=== PATIENT | male | born 1960 | race Caucasian/White ===

== ENCOUNTER 2020-08-17 13:00 | Emergency (ER) | payer BC, MEDICAID ==
[~2020-08-17] VITALS: Ht 172.7 cm; Wt 75.0 kg
[2020-08-17 13:04] VITALS: BP 131/92
[2020-08-17] MEDS ORDERED: LIDOcaine 1% W/epiNEPHrine 1:200,000 10ml vial IJ ONE (13:20)
== END 2020-08-17 15:00 ==
LOC: ER 13:00
DX: S01.312A Laceration without foreign body of left ear, initial encounter (principal); M25.512 Pain in left shoulder; G89.29 Other chronic pain; W22.8XXA Striking against or struck by other objects, initial encounter; Y93.89 Activity, other specified; Y92.89 Other specified places as the place of occurrence of the external cause; Y99.8 Other external cause status
CPT/HCPCS: 12013; 71045; 99283; 99284

== ENCOUNTER 2021-11-15 21:52 | Emergency (ER) | payer BC, MEDICAID ==
[~2021-11-15] VITALS: Ht 170.2 cm; Wt 75.0 kg
[~2021-11-15 21:52] MED LIST: ARIP10TA57 PO; BACL20TA PO; BENZ1TAB7 PO; BUPR150T27 PO; FINA5TAB11 PO; LORA10TA7 PO; OMEP40CA21 PO; QUET50TA24 PO
[2021-11-15 22:10] VITALS: BP 121/71
== END 2021-11-16 00:29 | disposition left against medical advice (07) ==
LOC: ER 21:52
DX: T65.91XA Toxic effect of unspecified substance, accidental (unintentional), initial encounter (principal); Z53.21 Procedure and treatment not carried out due to patient leaving prior to being seen by health care provider

== ENCOUNTER 2022-01-29 11:52 | Emergency (ER) | payer BC, MEDICAID | END 2022-01-29 13:02 | disposition left against medical advice (07) | LOC: ER 11:52 | DX: Z00.8 Encounter for other general examination (principal); Z53.21 Procedure and treatment not carried out due to patient leaving prior to being seen by health care provider ==

== ENCOUNTER 2022-02-20 18:55 | Emergency (ER) | payer BC, MEDICAID ==
[~2022-02-20] VITALS: Ht 172.7 cm; Wt 69.9 kg
[2022-02-20 20:58] LABS: BASOPHILS # (AUTO) 0.1 X10'3 (0-0.2); BASOPHILS % (AUTO) 1.1 % (0-1); HEMATOCRIT 37.7 % (42.0-52.0); HEMOGLOBIN 12.9 g/dl (14.0-17.9); LYMPHOCYTES # (AUTO) 1.8 X10'3 (1.1-4.8); LYMPHOCYTES % (AUTO) 36.4 % (21-51); MEAN CORPUSCULAR HEMOGLOBIN 32.6 PG (27.0-31.0); MEAN CORPUSCULAR HGB CONC 34.1 g/dL (33.0-36.5); MEAN CORPUSCULAR VOLUME 95.5 FL (78-98); MEAN PLATELET VOLUME 7.1 FL (7.4-10.4); MONOCYTES # (AUTO) 0.4 X10'3 (0-0.9); MONOCYTES % (AUTO) 7.4 % (2-12); NEUTROPHILS # (AUTO) 2.7 X10'3 (1.8-7.7); NEUTROPHILS % (AUTO) 54.1 % (42-75); PLATELET COUNT 254 X10'3 (140-440); RED BLOOD COUNT 3.94 X10'6 (4.70-6.10); RED CELL DISTRIBUTION WIDTH 13.9 % (11.5-14.5)
--- NOTE | 2022-02-20 20:59 | NUR ---
PT LYING IN BED RESTING WITH EYES CLOSED
[2022-02-20 21:08] LABS: URINE AMPHETAMINE SCREEN POSITIVE (Neg); URINE BARBITUATE SCREEN NEGATIVE (Neg); URINE BENZODIAZEPINES SCREEN NEGATIVE (Neg); URINE CANNABINOID SCREEN POSITIVE (Neg); URINE COCAINE SCREEN NEGATIVE (Neg); URINE METHADONE SCREEN NEGATIVE (Neg); URINE OPIATE SCREEN NEGATIVE (Neg); URINE PHENCYCLIDINE SCREEN NEGATIVE (Neg)
[2022-02-20 21:11] LABS: ALANINE AMINOTRANSFERASE 22 U/L (12-78); ALBUMIN 3.9 G/DL (3.4-5.0); ALBUMIN/GLOBULIN RATIO 1.1 (1.1-1.5); ALKALINE PHOSPHATASE 98 IU/L (46-116); ANION GAP 6 (8-16); ASPARTATE AMINO TRANSFERASE 50 U/L (10-37); BILIRUBIN,TOTAL 0.6 MG/DL (0.1-1.0); BLOOD UREA NITROGEN 20 MG/DL (7-18); BUN/CREATININE RATIO 25.6 (5.4-32.0); CALCIUM 8.7 MG/DL (8.5-10.1); CHLORIDE 101 MMOL/L (99-107); CREATININE 0.78 MG/DL (0.60-1.10); ETHANOL < 0.010 GM/DL (0.0-0.010); GLUCOSE 81 MG/DL (70-104); POTASSIUM 3.8 MMOL/L (3.5-5.1); SODIUM 134 MMOL/L (135-145); TOTAL CARBON DIOXIDE 26.8 MMOL/L (24-32); TOTAL PROTEIN 7.3 G/DL (6.4-8.2); eGFR > 90 ML/MIN
--- NOTE | 2022-02-20 22:53 | NUR ---
PT RESTING IN BED WITH EYES CLOSED ON LEFT SIDE
--- NOTE | 2022-02-21 07:15 | NUR ---
Pt made a verbal contract that he will not harm himself or others while in our care.
[2022-02-21 07:16] VITALS: BP 105/60
[2022-02-21] MEDS ORDERED: METO-384 PO (07:26)
[2022-02-21] MEDS ORDERED: BUPR2TAB11 SL (07:26)
[2022-02-21] MEDS ORDERED: DULO60CA65 PO (07:26)
[2022-02-21] MEDS ORDERED: ALBUTEROL (07:26)
--- NOTE | 2022-02-21 10:37 | NUR ---
PT LYING IN BED, WITH EYES CLOSED. NO NEEDS AT THIS TIME. WILL CONTINUE TO MONITER.
--- NOTE | 2022-02-21 11:04 | NUR ---
MED REC FAXED TO PHARMACY
[2022-02-21] MEDS ORDERED: ALBU17AE26 PO (11:07)
--- NOTE | 2022-02-21 11:45 | NUR ---
PT IN ROOM RESTING, PT HAS NO NEEDS AT TIME. WILL CONTINUE TO MONITER.
[2022-02-21] MEDS ORDERED: albuterol 2.5 MG/3 ML nebule NEB PRN (12:15)
[2022-02-21] MEDS ORDERED: BUPRENORPHINE HCL 2 MG SL SCH (20:00)
[2022-02-21] MEDS ORDERED: QUEtiapine 25mg tablet PO SCH (21:00)
[2022-02-22] MEDS ORDERED: buproprion 150mg XL (24-hour) tablet PO SCH (08:00)
[2022-02-22] MEDS ORDERED: pantoprazole 40mg Tablet.DR PO SCH (08:00)
[2022-02-22] MEDS ORDERED: loratadine 10mg tablet PO SCH (08:00)
[2022-02-22] MEDS ORDERED: finasteride 5mg tablet PO SCH (08:00)
== END 2022-02-21 12:43 | disposition home or self-care (01) ==
LOC: ER 18:56
DX: R45.850 Homicidal ideations (principal); Z20.822 Contact with and (suspected) exposure to COVID-19; G89.29 Other chronic pain; M54.50 Low back pain, unspecified; F12.90 Cannabis use, unspecified, uncomplicated; Z88.2 Allergy status to sulfonamides; Z59.00 Homelessness unspecified
CPT/HCPCS: 36415; 80053; 80305; 80320; 85025; 87811; 99285

== ENCOUNTER 2022-02-28 13:18 | Emergency (ER) | payer BC, MEDICAID ==
[~2022-02-28] VITALS: Ht 172.7 cm; Wt 68.2 kg
[~2022-02-28 13:18] MED LIST changes: +ALBU17AE26 PO; -ARIP10TA57 PO; -BACL20TA PO; -BENZ1TAB7 PO; +BUPR2TAB11 SL
[2022-02-28 13:23] VITALS: BP 134/85
[2022-02-28] MEDS ORDERED: GABA300C PO (13:32)
== END 2022-02-28 13:50 | disposition home or self-care (01) ==
LOC: ER 13:19
DX: F10.129 Alcohol abuse with intoxication, unspecified (principal); G89.29 Other chronic pain; M54.50 Low back pain, unspecified; F12.90 Cannabis use, unspecified, uncomplicated; Z02.79 Encounter for issue of other medical certificate; Z88.2 Allergy status to sulfonamides; Z59.00 Homelessness unspecified; Y90.9 Presence of alcohol in blood, level not specified
CPT/HCPCS: 99283

== ENCOUNTER 2022-09-11 20:03 | Emergency (ER) | payer BC, MEDICAID ==
[~2022-09-11] VITALS: Ht 172.7 cm; Wt 70.5 kg
[~2022-09-11 20:03] MED LIST changes: +GABA300C PO
--- NOTE | 2022-09-11 21:00 | NUR ---
PT SITTING IN LOBBY, COPPERATIVE WITH STAFF, AWAITING ROOM PLACEMENT.
--- NOTE | 2022-09-11 22:00 | NUR ---
AWAITING ROOM PLACEMENT, PT AWAKR, SITTING IN CHAIR WATCHING TV.
[2022-09-11 22:56] LABS: BASOPHILS % (AUTO) 0.7 % (0-1); EOSINOPHILS # (AUTO) 0.3 X10'3 (0-0.9); EOSINOPHILS % (AUTO) 4.1 % (0-6); HEMATOCRIT 36.4 % (42.0-52.0); HEMOGLOBIN 12.4 g/dl (14.0-17.9); LYMPHOCYTES # (AUTO) 3.1 X10'3 (1.1-4.8); LYMPHOCYTES % (AUTO) 43.5 % (21-51); MEAN CORPUSCULAR HEMOGLOBIN 32.8 PG (27.0-31.0); MEAN CORPUSCULAR VOLUME 96.4 FL (78-98); MEAN PLATELET VOLUME 6.3 FL (7.4-10.4); MONOCYTES # (AUTO) 0.6 X10'3 (0-0.9); MONOCYTES % (AUTO) 8.9 % (2-12); NEUTROPHILS # (AUTO) 3.1 X10'3 (1.8-7.7); NEUTROPHILS % (AUTO) 42.8 % (42-75); PLATELET COUNT 347 X10'3 (140-440); RED BLOOD COUNT 3.78 X10'6 (4.70-6.10); RED CELL DISTRIBUTION WIDTH 14.6 % (11.5-14.5); WHITE BLOOD COUNT 7.2 X10'3 (4.5-11.0)
--- NOTE | 2022-09-11 23:00 | NUR ---
AWAITING ROOM PLACEMENT, PT AWAKE WATCHING TV IN LOBBY.
[2022-09-11 23:10] LABS: ALANINE AMINOTRANSFERASE 11 U/L (12-78); ALBUMIN 3.7 G/DL (3.4-5.0); ALBUMIN/GLOBULIN RATIO 1.2 (1.1-1.5); ALKALINE PHOSPHATASE 85 IU/L (46-116); ANION GAP 3 (8-16); ASPARTATE AMINO TRANSFERASE 14 U/L (10-37); BILIRUBIN,TOTAL 0.3 MG/DL (0.1-1.0); BLOOD UREA NITROGEN 13 MG/DL (7-18); CALCIUM 8.7 MG/DL (8.5-10.1); CHLORIDE 103 MMOL/L (99-107); ETHANOL < 0.010 GM/DL (0.0-0.010); GLUCOSE 99 MG/DL (70-104); POTASSIUM 3.9 MMOL/L (3.5-5.1); SODIUM 139 MMOL/L (135-145); TOTAL CARBON DIOXIDE 33.1 MMOL/L (24-32); TOTAL PROTEIN 6.9 G/DL (6.4-8.2); eGFR 76 ML/MIN
[2022-09-11 23:22] LABS: ACETAMINOPHEN < 2.0 UG/ML (10-30)
--- NOTE | 2022-09-12 00:10 | NUR ---
AWAITING ROOM PLACEMENT, PT SLEEPING ON GROUND IN LOBBY. EQUAL CHEST RISE AND FALL, NO S/S OF DISTRESS.
--- NOTE | 2022-09-12 01:15 | NUR ---
AWAITING ROOM PLACEMENT, PT SLEEPING ON GROUND IN LOBBY. EQUAL CHEST RISE AND FALL, NO S/S OF DISTRESS.
--- NOTE | 2022-09-12 02:15 | NUR ---
AWAITING ROOM PLACEMENT, PT SLEEPING ON RIGHT SIDE ON GROUND IN LOBBY. EQUAL CHEST RISE AND FALL, NO S/S OF DISTRESS.
--- NOTE | 2022-09-12 03:30 | NUR ---
AWAITING ROOM PLACEMENT, PT SLEEPING ON GROUND IN LOBBY. EQUAL CHEST RISE AND FALL, NO S/S OF DISTRESS.
--- NOTE | 2022-09-12 04:30 | NUR ---
AWAITING ROOM PLACEMENT, PT SLEEPING ON LEFT SIDE ON GROUND IN LOBBY. EQUAL CHEST RISE AND FALL, NO S/S OF DISTRESS.
--- NOTE | 2022-09-12 05:30 | NUR ---
AWAITING ROOM PLACEMENT, PT SLEEPING ON GROUND IN LOBBY. EASILY AROUSABLE TO VOICE. PT UPDATED WITH PLAN OF CARE, OBTAINED URINE AND COVID SWAB. PT STILL VOICING SI WITH PLAN TO JUMP OFF BRIDGE. PT COOPERATIVE WITH STAFF. PT AMBULATES WELL WITH NO ASSISTANCE, VITALS UPDATED, VSS.
[2022-09-12 05:39] VITALS: BP 129/85
[2022-09-12 06:05] LABS: URINE AMPHETAMINE SCREEN NEGATIVE (Neg); URINE BARBITUATE SCREEN NEGATIVE (Neg); URINE BENZODIAZEPINES SCREEN NEGATIVE (Neg); URINE CANNABINOID SCREEN POSITIVE (Neg); URINE COCAINE SCREEN NEGATIVE (Neg); URINE METHADONE SCREEN NEGATIVE (Neg); URINE OPIATE SCREEN NEGATIVE (Neg); URINE PHENCYCLIDINE SCREEN NEGATIVE (Neg)
--- NOTE | 2022-09-12 06:19 | NUR ---
PT SLEEPING IN HIS RGT SIDE LATERAL POSITION {LOBBY FLOOR}.RR WNL ,WILL CONT TO MONITOR.
--- NOTE | 2022-09-12 07:12 | NUR ---
SECURITY INCIDENT RESPONSE SPECIALIST CAME FOR ROUNDS WOKE UP THE PT FROM SLEEP ,PT UP IN CHAIR AWAITING FOR ROOM ASSISGNEMENT.MADE CHARGE DONN AWARE THAT PT IS IN THE LOBBY SINCE LAST NIGHT. PER CHARGE ONCE WILL GET THE COVID RESULT WILL ROOM THE PT .
--- NOTE | 2022-09-12 07:45 | NUR ---
Patient ambulatory, steady gait to ED OF bed 22. Patient is calm and cooperative. Continue to monitor.
[2022-09-12] MEDS ORDERED: GABA100C PO (08:19)
[2022-09-12] MEDS ORDERED: BACL20TA PO (08:19)
[2022-09-12] MEDS ORDERED: OLAN5TAB75 PO (08:19)
[2022-09-12] MEDS ORDERED: LORA10TA7 PO (08:19)
[2022-09-12] MEDS ORDERED: PRAZ1CAP5 PO (08:19)
[2022-09-12] MEDS ORDERED: FINA5TAB11 PO (08:19)
[2022-09-12] MEDS ORDERED: GABA-530 PO (08:19)
[2022-09-12] MEDS ORDERED: OMEP20CA16 PO (08:19)
[2022-09-12] MEDS ORDERED: LOP25T PO (08:19)
--- NOTE | 2022-09-12 08:25 | NUR ---
Faxed Packet to [facility]
[2022-09-12] MEDS ORDERED: gabapentin 100mg capsule PO PRN (08:45)
--- NOTE | 2022-09-12 09:15 | NUR ---
Patient eating breakfast. No distress observed. Continue to monitor.
--- NOTE | 2022-09-12 09:32 | NUR ---
Carlos PANG, evaluating patient. Continue to monitor.
--- NOTE | 2022-09-12 09:53 | NUR ---
Met with patient in regards to substance/alcohol use and to see if patient was interested in resources for treatment options. Patient is interested. I gave patient information for [facility] and [facility]. Patient has my card to call me with any questions.
--- NOTE | 2022-09-12 11:36 | NUR ---
Patient sleeping supine. No distress observed. Continue to monitor.
[2022-09-12] MEDS ORDERED: baclofen 10mg tablet PO SCH (13:00)
[2022-09-12] MEDS ORDERED: metoprolol tartrate 25mg tablet PO SCH (20:00)
[2022-09-12] MEDS ORDERED: loratadine 10mg tablet PO SCH (20:00)
[2022-09-12] MEDS ORDERED: prazosin 1mg capsule PO SCH (21:00)
[2022-09-12] MEDS ORDERED: OLANZAPINE 5 MG TABLET PO SCH (21:00)
[2022-09-13] MEDS ORDERED: pantoprazole 40mg Tablet.DR PO SCH (08:00)
[2022-09-13] MEDS ORDERED: finasteride 5mg tablet PO SCH (08:00)
[2022-09-13] MEDS ORDERED: gabapentin 100mg capsule PO SCH (08:00)
== END 2022-09-12 13:03 | disposition home or self-care (01) ==
LOC: ER 20:04
DX: R45.851 Suicidal ideations (principal); Z20.822 Contact with and (suspected) exposure to COVID-19; G89.29 Other chronic pain; M54.9 Dorsalgia, unspecified; F32.A Depression, unspecified; F17.200 Nicotine dependence, unspecified, uncomplicated; F12.10 Cannabis abuse, uncomplicated; Z59.00 Homelessness unspecified; Z88.2 Allergy status to sulfonamides; Z79.899 Other long term (current) drug therapy
CPT/HCPCS: 36415; 80053; 80305; 80320; 80329; 85025; 87635; 87811; 99285